=== PATIENT | male | born 1995 | race Caucasian/White ===

== ENCOUNTER 2018-11-12 19:07 | Emergency (ER) | payer MEDICAID, OTHER | END 2018-11-12 22:08 | disposition home or self-care (01) | LOC: FTE 19:07 | DX: R59.9 Enlarged lymph nodes, unspecified (principal); F17.210 Nicotine dependence, cigarettes, uncomplicated | CPT/HCPCS: 76536; 99284-25 ==

== ENCOUNTER 2018-11-18 16:58 | Emergency (ER) | payer MEDICAID | END 2018-11-18 17:20 | disposition home or self-care (01) | LOC: E/R 17:20 | DX: R59.9 Enlarged lymph nodes, unspecified (principal); Z87.891 Personal history of nicotine dependence | CPT/HCPCS: 99283; Z7502 ==